=== PATIENT | female | born 1950 | race Two or more races ===

== ENCOUNTER 2024-05-22 21:27 | Emergency (ER) | payer OTHER, MEDICAID, SELFPAY ==
[2024-05-22 21:35] VITALS: BP 178/77; PULSE 79; RESP 18; TEMP 36.7; O2SAT 96
[2024-05-22] MEDS: TETRACAINE PF OP SOL 0.5% 4 ML DRPETTE 1 DROP RIGHT EYE (21:51)
[2024-05-22] MEDS: FLUORESCEIN SOD 1 MG STRP RIGHT EYE (22:04)
[2024-05-22] MEDS: Erythromycin Op Oint 0.5% 1 GM PACKET RIGHT EYE (22:54)
--- NOTE | 2024-05-23 03:38 | EDNOTE_ITS ---
ED Eye Problem RME/HPI General Chief complaint: Eye Problems Stated complaint: RIGHT EYE PAIN Time Seen by Provider: 05/22/24 21:46 Arrival date/time: 05/22/24 21:27 73F with history of HTN presents to ED with R eye pain/irritation today after she thinks she got some Hot [employer]et[employer] dust in her eyes. Patient denies vision changes. Limitations: no limitations Related Data Home Medications ?Medication ?Instructions ?Recorded ?Confirmed chlorthalidone 25 mg tablet 25 mg PO QDAY ##30 6 10/24/17 lisinopril 20 mg tablet 20 mg PO QDAY ##30 02/09/16 10/24/17 Previous Rx's ?Medication ?Instructions ?Recorded azithromycin 500 mg tablet See Rx Instructions PO .COM PLEX #6 11/21/21 tabs benzonatate 100 mg capsule 100 mg PO TID PRN cough #14 caps 11/21/21 erythromycin 5 mg/gram (0.5 %) eye 0.5 inch ophthalmic (eye) QID #3.5 05/22/24 ointment grams Allergies Allergy/AdvReac Type Severity Reaction Status Date / Time codeine Allergy Unknown SOB Verified 12/10/23 00:50 Review of Systems Review of Systems Systems Reviewed: All systems reviewed, normal except as documented Constitutional Constitutional: Reports system reviewed and no additional complaints, except as documented, Denies fever(s) and Denies headache(s) Eyes Eyes: Reports as per HPI, Reports irritation and Reports eye pain ENT Ears, Nose, Mouth, and Throat: Denies as per HPI, Denies disequilibrium and Denies headache(s) Cardiovascular Cardiovascular: Reports system reviewed and no additional complaints, except as documented, Denies chest pain and Denies dyspnea Respiratory Respiratory: Reports system reviewed and no additional complaints, except as documented, Denies cough and Denies dyspnea Gastrointestinal Gastrointestinal: Reports system reviewed and no additional complaints, except as documented, Denies abdominal pain, Denies nausea and Denies vomiting Neurologic Neurologic: Reports system reviewed and no additional complaints, except as documented, Denies confusion, Denies disequilibrium and Denies headache(s) Psychiatric Psychiatric: Denies confusion Past Medical History Past Medical History OTHER HISTORY: Positive Blood Transfusions Social History SMOKING STATUS: Never smoker ED Exam General Limitations: Present no limitations General appearance: Present alert and in no apparent distress Head Head exam: Present atraumatic Eye Eye exam: Present PERRL and EOMI Expanded Eye Exam Sclera/Conjunctival: right: injection (mild) and foreign body (small mobile) IOP (R) in mmH IOP (L) in mmH IOP measured with: [facility] ENT exam: Present normal exam, normal oropharynx and mucous membranes moist Neck Neck exam: Present normal inspection, full ROM and trachea midline Chest Chest inspection: Present normal inspection and symmetric chest wall rise Respiratory Respiratory exam: Present normal lung sounds bilaterally Cardiovascular Cardiovascular exam: Present regular rate, normal rhythm and normal heart sounds Abdominal Exam Abdominal exam: Present soft and normal bowel sounds Extremities Exam Extremities exam: Present normal inspection and full ROM Back Exam Back exam: Present normal inspection and full ROM Neurological Exam Neurological exam: Present alert, oriented X3 and CN II-XII intact Psychiatric Psychiatric exam: Present normal affect and normal mood Skin Skin exam: Present warm, dry, intact and normal color Course Quality Measures none Orders Category Date Time Status ED Eye Irrigation ONCE Care 05/22/24 21:46 Completed Pierre Lamp to Bedside X1 Care 05/22/24 21:46 Completed Erythromycin Op Oint 0.5% Med 05/22/24 22:45 Discontinued 1 gm RIGHT EYE X1 ONE Fluorescein Sodium [[id number]] Med 05/22/24 21:49 Discontinued 1 mg RIGHT EYE X1 ONE TETRACAINE Op Zena 0.5% [Pontocaine Op Zena 0.5%] Med 05/22/24 21:46 Discontinued 1 drop RIGHT EYE X1 ONE Vital Signs Vital signs: Vital Signs Temperature 98.0 F 05/22/24 21:35 Pulse Rate 79 05/22/24 21:35 Respiratory Rate 18 05/22/24 21:35 Blood Pressure 178/77 H 05/22/24 21:35 Pulse Oximetry (%) 96 05/22/24 21:35 Oxygen Delivery Method Room Air 05/22/24 21:35 O2 at 96% on RA and WNLs Eye MDM Narrative MDM Narrative:: 73F with history of HTN presents to ED with R eye pain/irritation today after she thinks she got some [employer]et[employer] dust in her eyes. Patient denies vision changes. Physical exam reveals normal pupil response and EOM. Some R eye conjunctivitis. Patient is afebrile, calm, and alert. Wood's lamp exam reveals small mobile FBs and mild corneal abrasion. Eye irrigation/meds helped. R eye pressure 22, L eye 18. Cash Applications Specialist given. Patient data External records reviewed:: [facility] previous records Clinical information provided by:: patient Social determinants that could affect healthcare access:: none Patient has the following chronic illnesses:: HTN How is presenting disease/condition affected by chronic disease/condition?: no chronic disease Evaluation data The following diagnostics were reviewed and interpreted by me:: other (specify) (none) Lab and/or radiology exams considered but not ordered:: not ordered Interpretation Summary: n/a Medications / Prescriptions Medications or Prescriptions considered but not ordered:: ordered Medication administrations:: Medication Administration History Discontinued Medications Erythromycin (Erythromycin Op Oint 0.5% 1 Gm Packet) 1 gm RIGHT EYE X1 ONE Stop: 05/22/24 22:46 Last Admin: 05/22/24 22:54 Dose: 1 gm Documented By: Co-signed By: KAM Fluorescein Sodium (Fluorescein Sod 1 Mg Strp) 1 mg RIGHT EYE X1 ONE Stop: 05/22/24 21:50 Last Admin: 05/22/24 22:04 Dose: 1 mg Documented By: Tetracaine HCl (Tetracaine Pf Op Zena 0.5% 4 Ml Drpette) 1 drop RIGHT EYE X1 ONE Stop: 05/22/24 21:47 Last Admin: 05/22/24 21:51 Dose: 1 drop Documented By: above Consultations Consultation(s) initiated? (list below): No Diagnosis Eye Problem Differential Diagnosis: corneal abrasion, conjunctivitis, acute iritis, hyphema, periorbital cellulitis, subconjunctival hemorrhage, glaucoma, corneal ulcer and ruptured globe Most likely diagnosis given after review of the tests above:: corneal abrasion Admission Indicated Admission indicated?: not indicated Admission Request Was there a request for admission?: No Disposition Plan Disposition Plan: Discharge Discharge Attestation Discharge Attestation: The patient and all family members were given an opportunity to ask questions and understood the discharge instructions. Discharge instructions specifically effects, indications for sooner follow up or return to the emergency department, and the expected course of current diagnosis. Patient condition: Stable Discharge Plan Plan Patient Disposition: HOME (Self Care) Disposition Comment: Stable Prescriptions/Referrals Prescriptions/Med Rec: New erythromycin 5 mg/gram (0.5 %) ointment 0.5 inch ophthalmic (eye) QID Qty: 3.5 0RF No Action lisinopril 20 MG tablet 20 mg PO QDAY Qty: 30 chlorthalidone 25 MG tablet 25 mg PO QDAY Qty: 30 azithromycin 500 mg tablet See Rx Instructions .ROUTE .COMPLEX Qty: 6 0RF Rx Instructions: take 500 mg today (day 1), then 250 mg for 4 days (days 2-5) benzonatate 100 mg capsule 100 mg PO TID PRN (Reason: cough) Qty: 14 0RF Problem List Clinical Impression: Corneal abrasion Patient/Caregiver Discharge Instructions Education Materials: ED Corneal Abrasion Additional Instructions: Please follow-up with PCP within 24-48 hours and return immediately if symptoms worsen. See eye MD in the next few days. Print Language: Citizen Of [place] Stand Alone Forms: Patient Portal Info Letter DAVID/ALTA Supervising Physician DAVID/ALTA Supervising Physician: Dr. Grewal
== END 2024-05-22 22:50 | disposition home or self-care (01) ==
LOC: SERX 23:32
PROVIDERS: Emergency Provider Emergency Medicine; PCP Physician Assistant
DX: S05.01XA Injury of conjunctiva and corneal abrasion without foreign body, right eye, initial encounter (principal); X58.XXXA Exposure to other specified factors, initial encounter
CPT/HCPCS: 99283; A9270

== ENCOUNTER 2024-09-30 05:04 | Emergency (ER) | payer MEDICARE, MEDICAID, SELFPAY ==
[2024-09-30 05:06] VITALS: BMI 29.5
[2024-09-30 05:18] VITALS: BP 195/72; PULSE 60; RESP 17; TEMP 36.7; O2SAT 99
--- NOTE | 2024-09-30 05:41 | XR_ITS ---
Examination: CT thoracic spine, without contrast. 2-D sagittal reconstructions. 2-D coronal reconstructions. 3-D reconstructions. Date and time of exam:September 30, 2024 0710 hours INDICATIONS: Mid back pain this week and no trauma CTDI: vol (mGy):27.2 DLP: (mGycm):855 Technique: Multiple 1.25 mm axial sections of the thoracic spine without intravenous contrast have been obtained. 2-D sagittal and coronal reconstructions have been obtained. 3-D reconstructions have been obtained. Low dose protocols were performed. One or more of the following dose reduction techniques were used; automated exposure control, adjustment of the mA and/or KV according to patient size, use of iterative reconstruction technique. Findings: Adequate alignment thoracic vertebral bodies on the lateral view Mild thoracic spondylosis. No thoracic vertebral body compression fracture. Thoracic pedicles, laminae, transverse and posterior spinous processes intact Mild diffuse thoracic disc narrowing No focal thoracic disc protrusion IMPRESSION: Mild diffuse thoracic degenerative disc disease Consider elective MRI thoracic spine without contrast follow-up to best assess for acquired soft tissue spinal stenosis
--- NOTE | 2024-09-30 05:41 | EDRME_ITS ---
Rapid Medical Screening Exam [facility] Arrival date/time: 09/30/24 05:04 73F with history of HTN presents to ED with 1 week of upper back pain that is worse with movement. Patient denies fall/trauma, URI symptoms and CP. Possible SOB, but only when she moves. Chief Complaint: Back Pain/Injury Vital signs: Vital Signs Temperature 98.0 F 09/30/24 05:18 Pulse Rate 60 09/30/24 05:18 Respiratory Rate 17 09/30/24 05:18 Blood Pressure 195/72 H 09/30/24 05:18 Pulse Oximetry (%) 99 09/30/24 05:18 Oxygen Delivery Method Room Air 09/30/24 05:18
[2024-09-30] MEDS: NAPROXEN 250 MG TABLET 500 MG PO (05:46)
[2024-09-30 08:05] VITALS: BP 156/76; PULSE 54; RESP 16; TEMP 36.4; O2SAT 100
--- NOTE | 2024-09-30 08:54 | EDNOTE_ITS ---
<Statement entered by Liz Schroeder MD - 09/30/24 09:44> As co-signing physician, I was present and available for consult prn. I concur with the plan and care as documented by the midlevel provider. ED Back Injury Pain RME/HPI General Chief Complaint: Back Pain/Injury Stated Complaint: UPPER BACK PAIN Arrival date/time: 09/30/24 05:04 Limitations: no limitations RME / HPI RME / HPI Narrative: 09/30/24 05:04 73F with history of HTN presents to ED with 1 week of upper back pain that is worse with movement. Patient denies fall/trauma, URI symptoms and CP. Possible SOB, but only when she moves. Complaint: back pain (X 2 days. Worse upon laying down) Onset (ago): day(s) (X 2 days) Duration: other (Upon laying down, movement) Similar Symptoms Previously: No Location: thoracic spine Severity: moderate Related Data Home Medications ?Medication ?Instructions ?Recorded ?Confirmed chlorthalidone 25 mg tablet 25 mg PO QDAY ##30 6 10/24/17 lisinopril 20 mg tablet 20 mg PO QDAY ##30 02/09/16 10/24/17 Previous Rx's ?Medication ?Instructions ?Recorded azithromycin 500 mg tablet See Rx Instructions PO .COM PLEX #6 11/21/21 tabs benzonatate 100 mg capsule 100 mg PO TID PRN cough #14 caps 11/21/21 erythromycin 5 mg/gram (0.5 %) eye 0.5 inch ophthalmic (eye) QID #3.5 05/22/24 ointment grams naproxen 500 mg tablet 500 mg PO BID #20 tabs 09/30 Allergies Allergy/AdvReac Type Severity Reaction Status Date / Time codeine Allergy Unknown SOB Verified 09/30/24 05:11 Review of Systems Constitutional Constitutional: Reports system reviewed and no additional complaints, except as documented Eyes Eyes: Reports system reviewed and no additional complaints, except as documented, Denies dry eyes, Denies exophthalmos and Reports floaters Cardiovascular Cardiovascular: Denies chest pain with activity and Denies claudication ED Exam Narrative Physical exam: Patient spine is midline, nontender to palpation is the thoracic spine. Patient is able to flex at the waist and barely misses her toes by inches. All movement at the waist is full range of motion and to endrange. Patient is able to extend. All extremities are symmetrical and there is no apparent no apparent neurofocal deficit. The neck is with full range of motion and there is no apparent neurofocal deficit presently as well as the neck is midline. General Limitations: Present no limitations General appearance: Present alert and in no apparent distress Head Head exam: Present atraumatic Eye Eye exam: Present normal appearance and EOMI ENT ENT exam: Present normal exam, normal oropharynx and mucous membranes moist Neck Neck exam: Present normal inspection, full ROM and trachea midline Chest Chest inspection: Present normal inspection Extremities Exam Extremities exam: Present normal inspection and full ROM Back Exam Back exam: Present normal inspection and full ROM Neurological Exam Neurological exam: Present alert and oriented X3 Psychiatric Psychiatric exam: Present normal affect and normal mood Skin Skin exam: Present warm, dry, intact and normal color Course Course Course Narrative: Patient will have had a CT of the thoracic spine which is essentially negative. There is degenerative joint disease present. There are no compression fractions that have been read by the radiologist. Quality Measures none Orders Category Date Time Status CT thoracic spine wo con Stat Exams 09/30/24 05:41 Completed Naproxen [Naprosyn] Med 09/30/24 05:41 Discontinued 500 mg PO X1 ONE Done Vital Signs Vital signs: Vital Signs Temperature 98.0 F 09/30/24 05:18 Pulse Rate 60 09/30/24 05:18 Respiratory Rate 17 09/30/24 05:18 Blood Pressure 195/72 H 09/30/24 05:18 Pulse Oximetry (%) 99 09/30/24 05:18 Oxygen Delivery Method Room Air 09/30/24 05:18 Pulse ox is 99% Back Pain / Injury MDM Narrative MDM Narrative:: Patient will be discharged in no apparent distress. She is to follow-up with primary care physician. Patient explains that she has had to change primary care physician and is looking for 1 as her insurance has changed. I will discharge her with a prescription for Naprosyn. Patient data External records reviewed:: Other (specify) (NA) Clinical information provided by:: patient Social determinants that could affect healthcare access:: none (NA) Patient has the following chronic illnesses:: NA How is presenting disease/condition affected by chronic disease/condition?: caused by (Advanced age) Evaluation data The following diagnostics were reviewed and interpreted by me:: radiology exam(s) (CT demonstrates osteoarthritis.) Lab and/or radiology exams considered but not ordered:: NA Interpretation Summary: NA Medications / Prescriptions Medications or Prescriptions considered but not ordered:: NA Medication administrations:: Medication Administration History Discontinued Medications Naproxen (Naproxen 250 Mg Tablet) 500 mg PO X1 ONE Stop: 09/30/24 05:42 Last Admin: 09/30/24 05:46 Dose: 500 mg Documented By: CB DONE Consultations Consultation(s) initiated? (list below): No Diagnosis Differential diagnosis back pain/injury: sciatica, strain of lumbar region, pyelonephritis and thoracic back pain Most likely diagnosis given after review of the tests above:: NA Admission Indicated Admission indicated?: not indicated Explain why admission is indicated or not indicated:: NA Admission Request Was there a request for admission?: No Admission Attestation Admission request attestation: NA Disposition Plan Disposition Plan: Discharge Discharge Attestation Discharge Attestation: The patient and all family members were given an opportunity to ask questions and understood the discharge instructions. Discharge instructions specifically effects, indications for sooner follow up or return to the emergency department, and the expected course of current diagnosis. Patient condition: Stable Discharge Plan Plan Patient Disposition: HOME (Self Care) Discharge Disposition comment: NA Prescriptions/Referrals Prescriptions/Med Rec: New naproxen 500 mg tablet 500 mg PO BID Qty: 20 0RF No Action lisinopril 20 MG tablet 20 mg PO QDAY Qty: 30 chlorthalidone 25 MG tablet 25 mg PO QDAY Qty: 30 erythromycin 5 mg/gram (0.5 %) ointment 0.5 inch ophthalmic (eye) QID Qty: 3.5 0RF azithromycin 500 mg tablet See Rx Instructions .ROUTE .COMPLEX Qty: 6 0RF Rx Instructions: take 500 mg today (day 1), then 250 mg for 4 days (days 2-5) benzonatate 100 mg capsule 100 mg PO TID PRN (Reason: cough) Qty: 14 0RF Referrals: No Primary/Family,Physician [Primary Care Provider] - In 1 week Problem List Clinical Impression: Thoracic back pain Patient/Caregiver Discharge Instructions Discharge Activity: activity as tolerated Print Language: Amharic Stand Alone Forms: Susan Award Info., Patient Portal Info Letter PA/BRANCH RETAIL EXECUTIVE Supervising Physician PA/BRANCH RETAIL EXECUTIVE Supervising Physician: ELKE
[2024-09-30 09:24] VITALS: BP 132/77; PULSE 78; RESP 18; TEMP 36.5; O2SAT 99
== END 2024-09-30 09:25 | disposition home or self-care (01) ==
PROVIDERS: Emergency Provider Emergency Medicine
DX: M54.6 Pain in thoracic spine (principal)
CPT/HCPCS: 72128; 99282; A9270

== ENCOUNTER 2025-01-22 14:37 | Emergency (ER) | payer MEDICARE, MEDICAID, SELFPAY ==
[2025-01-22 14:57] VITALS: BP 166/80; PULSE 60; RESP 18; TEMP 36.7; O2SAT 99; BMI 28.5
--- NOTE | 2025-01-22 15:10 | PD.EDDENTL ---
ED Dental RME/HPI General Chief complaint: Dental/Oral/Throat Stated complaint: Right upper tooth pain X 3 days Time Seen by Provider: 01/22/25 15:03 Arrival date/time: 01/22/25 14:37 74-year-old female with no known medical history presents to the emergency room with a chief complaint of right upper tooth pain x 3 days Mode of arrival: ambulatory Limitations: no limitations Related Data Home Medications ?Medication ?Instructions ?Recorded ?Confirmed chlorthalidone 25 mg tablet 25 mg PO QDAY ##30 02/09/16 10/24/17 lisinopril 20 mg tablet 20 mg PO QDAY ##30 02/09/16 10/24/17 Previous Rx's ?Medication ?Instructions ?Recorded azithromycin 500 mg tablet See Rx Instructions PO .COMPLEX #6 11/21/21 tabs benzonatate 100 mg capsule 100 mg PO TID PRN cough #14 caps 11/21/21 erythromycin 5 mg/gram (0.5 %) eye 0.5 inch ophthalmic (eye) QID #3.5 05/22/24 ointment grams naproxen 500 mg tablet 500 mg PO BID #20 tabs 09/30/24 clindamycin HCl 300 mg capsule 300 mg PO TID 7 days #21 caps 01/22/25 ibuprofen 800 mg tablet 800 mg PO Q8H #30 tabs 01/22/25 Allergies Allergy/AdvReac Type Severity Reaction Status Date / Time codeine Allergy Unknown SOB Verified 01/22/25 14:42 Review of Systems Review of Systems Systems Reviewed: All systems reviewed, normal except as documented Constitutional Constitutional: Reports system reviewed and no additional complaints, except as documented, Denies fatigue, Denies fever(s), Denies headache(s) and Denies weakness Eyes Eyes: Reports system reviewed and no additional complaints, except as documented, Denies blurry vision and Denies change in vision ENT Ears, Nose, Mouth, and Throat: Reports system reviewed and no additional complaints, except as documented, Reports dental pain, Denies otalgia, Denies headache(s), Denies nasal congestion, Denies throat swelling and Denies vertigo Cardiovascular Cardiovascular: Reports system reviewed and no additional complaints, except as documented, Denies chest pain, Denies dyspnea and Denies dyspnea on exertion Respiratory Respiratory: Reports system reviewed and no additional complaints, except as documented, Denies chest congestion, Denies cough, Denies dyspnea, Denies dyspnea on exertion and Denies wheezing Gastrointestinal Gastrointestinal: Reports system reviewed and no additional complaints, except as documented, Denies abdominal pain, Denies cramping, Denies nausea and Denies vomiting Genitourinary Genitourinary: Reports system reviewed and no additional complaints, except as documented Musculoskeletal Musculoskeletal: Reports system reviewed and no additional complaints, except as documented and Denies back pain Integumentary/Breasts Skin/Breast: Reports system reviewed and no additional complaints, except as documented and Denies wounds Neurologic Neurologic: Reports system reviewed and no additional complaints, except as documented, Denies confusion, Denies headache(s), Denies lack of coordination, Denies vertigo and Denies weakness Psychiatric Psychiatric: Reports system reviewed and no additional complaints, except as documented, Denies anxiety, Denies confusion, Denies depression, Denies paranoia, Denies suicidal ideation and Denies tactile hallucinations Endocrine Endocrine: Reports system reviewed and no additional complaints, except as documented and Denies fatigue Hematologic/Lymphatic Hematologic/Lymphatic: Reports system reviewed and no additional complaints, except as documented and Denies lymphadenopathy Allergic/Immunologic Allergic/Immunologic: Reports system reviewed and no additional complaints, except as documented, Denies throat swelling, Denies urticaria and Denies wheezing Past Medical History Past Medical History OTHER HISTORY: Positive Blood Transfusions Social History SMOKING STATUS: Never smoker ED Exam General Limitations: Present no limitations General appearance: Present alert and in no apparent distress Head Head exam: Present atraumatic Eye Eye exam: Present normal appearance, PERRL and EOMI ENT ENT exam: Present normal exam, normal oropharynx and mucous membranes moist Expanded ENT Exam Mouth exam: Present normal external inspection Teeth exam: Present fractured tooth # and dental tenderness # Teeth numbered:  1. Fractured and Dental Tenderness Neck Neck exam: Present normal inspection, full ROM and trachea midline Chest Chest inspection: Present normal inspection and symmetric chest wall rise Respiratory Respiratory exam: Present normal lung sounds bilaterally Cardiovascular Cardiovascular exam: Present regular rate, normal rhythm and normal heart sounds Abdominal Exam Abdominal exam: Present soft and normal bowel sounds Extremities Exam Extremities exam: Present normal inspection and full ROM Back Exam Back exam: Present normal inspection and full ROM Neurological Exam Neurological exam: Present alert, oriented X3 and CN II-XII intact Psychiatric Psychiatric exam: Present normal affect and normal mood Skin Skin exam: Present warm, dry, intact and normal color Course Quality Measures none Orders Category Date Time Status Ketorolac Inj [Toradol Inj] Med 01/22/25 15:01 Discontinued 30 mg IM X1 ONE Vital Signs Vital signs: Vital Signs Temperature 98.1 F 01/22/25 14:57 Pulse Rate 60 01/22/25 14:57 Respiratory Rate 18 01/22/25 14:57 Blood Pressure 166/80 H 01/22/25 14:57 Pulse Oximetry (%) 99 01/22/25 14:57 Oxygen Delivery Method Room Air 01/22/25 14:57 Dental / Oral MDM Narrative MDM Narrative:: 74-year-old female with no known medical history presents to the emergency room with a chief complaint of right upper tooth pain x 3 days Patient is hemodynamically stable and in no apparent distress Physical examination shows tenderness and pain to the patient's right upper tooth. Tooth numbers #5 #6 the tooth is fractured. Patient states her appointment with her dentist is not till January 27 but she was instructed to call daily for any changes. Medication was sent to the patient's pharmacy to help her with her pain as well as antibiotics Patient was discharged and educated to follow-up with primary care provider in the next 24 to 48 hours and return to the emergency room for any evidence of worsening signs or symptoms Patient data External records reviewed:: [facility] previous records Clinical information provided by:: patient Social determinants that could affect healthcare access:: none Patient has the following chronic illnesses:: No chronic How is presenting disease/condition affected by chronic disease/condition?: no chronic disease Evaluation data The following diagnostics were reviewed and interpreted by me:: lab results and radiology exam(s) Lab and/or radiology exams considered but not ordered:: Labs and radiology exams considered and ordered Interpretation Summary: N/A Medications / Prescriptions Medications or Prescriptions considered but not ordered:: Medication given Medication administrations:: Medication Administration History Discontinued Medications Ketorolac Tromethamine (Ketorolac Inj 60 Mg/2 Ml Vial) 30 mg IM X1 ONE Stop: 01/22/25 15:02 Medication given Consultations Consultation(s) initiated? (list below): No Diagnosis Dental Differential Diagnosis: dental caries, toothache, dental abscess and fracture of tooth Most likely diagnosis given after review of the tests above:: Fracture of tooth Admission Indicated Admission indicated?: not indicated Admission Request Was there a request for admission?: No Disposition Plan Disposition Plan: Discharge Discharge Attestation Discharge Attestation: The patient and all family members were given an opportunity to ask questions and understood the discharge instructions. Discharge instructions specifically effects, indications for sooner follow up or return to the emergency department, and the expected course of current diagnosis. Patient condition: Stable Discharge Plan Plan Patient Disposition: HOME (Self Care) Prescriptions/Referrals Prescriptions/Med Rec: New clindamycin HCl 300 mg capsule 300 mg PO TID 7 Days Qty: 21 0RF ibuprofen 800 mg tablet 800 mg PO Q8H Qty: 30 0RF No Action lisinopril 20 MG tablet 20 mg PO QDAY Qty: 30 chlorthalidone 25 MG tablet 25 mg PO QDAY Qty: 30 erythromycin 5 mg/gram (0.5 %) ointment 0.5 inch ophthalmic (eye) QID Qty: 3.5 0RF azithromycin 500 mg tablet See Rx Instructions .ROUTE .COMPLEX Qty: 6 0RF Rx Instructions: take 500 mg today (day 1), then 250 mg for 4 days (days 2-5) benzonatate 100 mg capsule 100 mg PO TID PRN (Reason: cough) Qty: 14 0RF naproxen 500 mg tablet 500 mg PO BID Qty: 20 0RF Problem List Clinical Impression: Toothache Patient/Caregiver Discharge Instructions Education Materials: ED Dental Pain Additional Instructions: Please follow-up with your dentist in the next 24 to 48 hours Medication was sent to your pharmacy please pick it up and take it as indicated. 1 is an antibiotic and the other will help you with your pain For any evidence of worsening signs or symptoms return to the emergency room immediately Print Language: Beninese Stand Alone Forms: Susan Award Info., Work/School Release, Patient Portal Info Letter PA/ALTA Supervising Physician PA/ALTA Supervising Physician: Dr. Pinedo
[2025-01-22] MEDS: KETOROLAC INJ 60 MG/2 ML VIAL 30 MG IM (15:26)
== END 2025-01-22 15:45 | disposition home or self-care (01) ==
LOC: SERX 16:12
PROVIDERS: Emergency Provider Emergency Medicine
DX: K08.89 Other specified disorders of teeth and supporting structures (principal)
CPT/HCPCS: 96372; 99282; J1885

== ENCOUNTER → 2025-02-03 | Outpatient (CLI) | payer MEDICARE, MEDICAID, SELFPAY ==
--- NOTE | 2025-02-03 11:15 | XR_ITS ---
Examination: Screening digital mammography, bilateral Computer aided detection 3-D breast Tomosynthesis, bilateral Date and time of exam: Comparisons: Indications: Screening Technique: Nonmagnified MLO, CC views of the breasts to been obtained, reconstructed from 3-D Tomosynthesis images. R2 computer aided detection program utilized for evaluation of suspicious masses and/or abnormal calcifications. 3-D Tomosynthesis images obtained. Technologist: Findings: The breasts are heterogeneously dense, which may obscure small masses. No evidence of abnormal masses or suspicious calcifications. Impression: BI-RADS category 1: Negative findings (within normal) Recommend 1 year follow-up mammogram
== END | disposition home or self-care (01) ==
LOC: CDIM 10:47
DX: Z12.31 Encounter for screening mammogram for malignant neoplasm of breast (principal); R92.313 Mammographic fatty tissue density, bilateral breasts
CPT/HCPCS: 77063; 77067